=== PATIENT | male | born 1985 | race Asian ===

== ENCOUNTER 2025-07-24 11:26 | Emergency (ER) | payer SELFPAY ==
--- NOTE | 2025-07-24 12:27 | RAD REPORT ---
EXAMINATION: ULTRASOUND DUPLEX OF SCROTUM AND TESTICLES CLINICAL INDICATION: Male, 40 years, PAIN TECHNIQUE: Duplex scan of the scrotal contents was performed including real-time color and spectral D oppler ultrasonography with arterial inflow and venous outflow. COMPARISON: No prior exam. FINDINGS: RIGHT TESTICLE AND EPIDIDYMIS: The right testicle is normal in size, measuring 3.3 x 1.8 x 2.4 cm. Normal, homogeneous echotexture with no focal lesion seen. The right epididymis is normal. Color Doppler flow in the right testicle is normal. Normal arterial and venous spectral Doppler waveforms are identified. No hydrocele. No varicocele. LEFT TESTICLE AND EPIDIDYMIS: The left testicle is normal in size, measuring 3.4 x 2.1 x 2.6 cm. Normal, homogeneous echotexture with no focal lesion seen. The left epididymis is normal. Color Doppler flow in the left testicle is normal. Normal arterial and venous spectral Doppler waveforms are identified. Complex collection of fluid inferior to the left testicle, with debris, with no bowel or peristalsis present. This could represent a complicated hydrocele, or sequelae of a fluid containing hernia. This measures 2.2 x 5.1 x 2.4 cm. No varicocele. INGUINAL CANAL: No hernia. ADDITIONAL FINDINGS: None. IMPRESSION: Complex accumulation of fluid inferior to the left testicle measuring up to 5.1 x 2.2 x 2.4 cm, may r epresent a complex hydrocele or sequelae of a fluid containing hernia.
[2025-07-24] MEDS ORDERED: Levofloxacin 750mg IV 750 MG/150 ML BAG IV ONE (12:37)
[2025-07-24] MEDS ORDERED: CLINDAMYCIN 900MG/D5W 900 MG/50 ML IVPB IV ONE (12:37)
[2025-07-24] MEDS ORDERED: NA CHLORIDE 0.9% 1,000 ML ONE (12:38)
[2025-07-24 12:51] LABS: Absolute Lymphocytes (CBC) 1.5 K/uL (0.7-4.9); Hematocrit 38.5 % (39.6-49.0); Hemoglobin 12.9 g/dL (13.6-17.9); MCH 31.3 pg (27.0-35.0); MCHC 33.4 g/dL (32.0-36.0); MCV 93.6 fL (80-100); MPV 13.5 fL (7.6-11.3); Nucleated RBC Absolute Count 0.0 (0-0); Nucleated Red Blood Cells % 0.1 % (0-0); RBC Red Blood Cell Count 4.11 M/uL (4.33-5.43); White Blood Count 5.90 thou/uL (4.3-10.9)
[2025-07-24 12:55] LABS: Sqamous Epithelial <5 /HPF (None Seen); Urine Culture Reflex Order NOT NEEDED; Urine Microscopic Reflex YN ORDER UMIC; Urine WBC Clump Rare /HPF (None Seen)
[2025-07-24] MEDS ORDERED: ONDANSETRON 4 MG/2 ML VIAL ONE (12:59)
[2025-07-24] MEDS ORDERED: FENTANYL CITR 100 MCG/2 ML ONE (12:59)
[2025-07-24 13:07] LABS: ALT/SGPT 59.0 U/L (16-61); AST/SGOT 25.0 U/L (15-37); Albumin 3.4 g/dL (3.4-5.0); Albumin/Globulin Ratio 0.8 (1.1-1.8); Alkaline Phosphatase 134.0 U/L (45-117); Anion Gap 7.9 mEq/L (5.0-15.0); BUN Blood Urea Nitrogen 13.0 mg/dL (7-18); Globulin 4.4 g/dL (2.3-3.5); Glucose Level 132.0 mg/dL (74-106); Potassium 3.9 mEq/L (3.5-5.1)
--- NOTE | 2025-07-24 13:08 | EDPHYS ---
Physician Documentation [facility] Name: Alexy Pope Age: 40 yrs Sex: Male : 1985 Arrival Date: 07/24/2025 Time: 11:26 Bed 12 Private MD: Deep Lynne HPI: 07/24 13:00 This 40 yrs old Male presents to ER via Ambulatory with complaints of Penile brenda Pain, Groin Pain. 13:00 The patient presents with scrotal pain, of both sides, swelling, tenderness. Onset: The brenda symptoms/episode began/occurred 2 week(s) ago. Modifying factors: The symptoms are alleviated by remaining still, the symptoms are aggravated by movement, pressure. Associated signs and symptoms: The patient has no apparent associated signs or symptoms. Severity of symptoms: At their worst the symptoms were moderate, in the emergency department the symptoms are unchanged. The patient has not experienced similar symptoms in the past. Historical: - Allergies: 11:42 No Known Allergies; iw - Home Meds: 11:42 None [Active]; iw - PMHx: :42 None; iw - PSHx: 11:42 None; iw - Immunization history:: Adult Immunizations unknown. - Infectious Disease History:: Denies. - Social history:: Smoking status: Patient denies any tobacco usage or history of. ROS: 13:02 Constitutional: Negative for fever, chills, and weight loss, Eyes: Negative for injury, brenda pain, redness, and discharge, ENT: Negative for injury, pain, and discharge, Neck: Negative for injury, pain, and swelling, Cardiovascular: Negative for chest pain, palpitations, and edema, Respiratory: Negative for shortness of breath, cough, wheezing, and pleuritic chest pain, Abdomen/GI: Negative for abdominal pain, nausea, vomiting, diarrhea, and constipation, Back: Negative for injury and pain, MS/Extremity: Negative for injury and deformity, Skin: Negative for injury, rash, and discoloration, Neuro: Negative for headache, weakness, numbness, tingling, and seizure, Psych: Negative for depression, anxiety, suicide ideation, homicidal ideation, and hallucinations, Allergy/Immunology: Negative for hives, rash, and allergies, Endocrine: Negative for neck swelling, polydipsia, polyuria, polyphagia, and marked weight changes, Hematologic/Lymphatic: Negative for swollen nodes, abnormal bleeding, and unusual bruising, 13:02 : Positive for injury or acute deformity, of the left testicle and right testicle, Exam: 13:02 Constitutional: This is a well developed, well nourished patient who is awake, alert, brenda and in no acute distress. Head/Face: Normocephalic, atraumatic. Eyes: Pupils equal round and reactive to light, extra-ocular motions intact. Lids and lashes normal. Conjunctiva and sclera are non-icteric and not injected. Cornea within normal limits. Periorbital areas with no swelling, redness, or edema. ENT: Nares patent. No nasal discharge, no septal abnormalities noted. Tympanic membranes are normal and external auditory canals are clear. Oropharynx with no redness, swelling, or masses, exudates, or evidence of obstruction, uvula midline. Mucous membranes moist. Neck: Trachea midline, no thyromegaly or masses palpated, and no cervical lymphadenopathy. Supple, full range of motion without nuchal rigidity, or vertebral point tenderness. No Meningismus. Chest/axilla: Normal chest wall appearance and motion. Nontender with no deformity. No lesions are appreciated. Cardiovascular: Regular rate and rhythm with a normal S1 and S2. No gallops, murmurs, or rubs. Normal PMI, no JVD. No pulse deficits. Respiratory: Lungs have equal breath sounds bilaterally, clear to auscultation and percussion. No rales, rhonchi or wheezes noted. No increased work of breathing, no retractions or nasal flaring. Abdomen/GI: Soft, non-tender, with normal bowel sounds. No distension or tympany. No guarding or rebound. No evidence of tenderness throughout. Back: No spinal tenderness. No costovertebral tenderness. Full range of motion. Skin: Warm, dry with normal turgor. Normal color with no rashes, no lesions, and no evidence of cellulitis. MS/ Extremity: Pulses equal, no cyanosis. Neurovascular intact. Full, normal range of motion., bilateral aka Neuro: Awake and alert, GCS 15, oriented to person, place, time, and situation. Cranial nerves II-XII grossly intact. Motor strength 5/5 in all extremities. Sensory grossly intact. Cerebellar exam normal. Normal gait. Psych: Awake, alert, with orientation to person, place and time. Behavior, mood, and affect are within normal limits. 13:02 : CVA tenderness, is absent, Male external genitalia: erythema, swelling, tenderness, of the left testicle, right testicle and perineum is noted, Bladder: is normal, Sexual behavior: the patient is sexually active, Vital Signs: 12:43 BP 116 / 83; Pulse 81; Resp 16; Temp 97.6(TE); Pulse Ox 97% on R/A; Weight 65 kg; iw Height 5 ft. 5 in. ; 13:49 BP 119 / 95; Pulse 71; Resp 18; Pulse Ox 98% on R/A; Pain 5/10; rg5 14:15 BP 118 / 92; Pulse 73; Resp 18; Temp 98; Pulse Ox 100% ; Pain 2/10; rg5 12:43 Body Mass Index 23.85 (65.00 kg, 165.1 cm) iw 13:49 Pain Scale: Adult rg5 14:15 Pain Scale: Adult rg5 Clovis Coma Score: 13:02 Eye Response: spontaneous(4). Motor Response: obeys commands(6). Verbal Response: brenda oriented(5). Total: 15. MDM: 11:34 Medical Screening Exam initiated brenda 11:38 Medical Screening Exam initiated brenda 13:05 Differential diagnosis: nonspecific abdominal pain, UTI, Juares catheter problem, brenda prostatitis, urethritis. Data reviewed: vital signs, nurses notes, lab test result(s), EKG, radiologic studies, plain films. Consideration of Admission/Observation Escalation of care including admission/observation considered. I considered the following discharge prescriptions or medication management in the emergency department Medications were administered in the Emergency Department. See MAR. Independent interpretation of the following test(s) in the Emergency Department CT Scan: My interpretation is ct ab/pel. Test considered but Not performed: MRI: no mri/ not avalible. Historians other than the Patient: pt well informed. Care significantly affected by the following chronic conditions: no hx. 07/24 11:41 Order name: CBC with Diff; Complete Time: 12:59 [facility] 07/24 11:41 Order name: CMP [facility] 07/24 11:41 Order name: UA Rfx Peewee Cult if indicated; Complete Time: 12:59 [facility] 07/24 11:41 Order name: US Scrotum Testicles; Complete Time: 12:59 brenda 07/24 12:24 Order name: Abdomen Pelvis Scan\E\US EDMD 07/24 13:04 Order name: CT Abd/Pelvis - IV Contrast Only brenda Administered Medications: 12:51 Drug: NS 0.9% IV 1000 ml IV at 1000 ml once; to be given as a bolus over 60 minutes rg5 Route: IV; Rate: 1000 ml; Site: right antecubital; 14:20 Follow up: IV Status: Completed infusion; IV Intake: 1000ml rg5 12:57 Drug: Clindamycin IVPB 900 mg IVPB once over 30 mins; (mix in 50 mL) Route: IVPB; rg5 Infused Over: 30 mins; Site: right antecubital; 13:20 Follow up: IV Status: Completed infusion; IV Intake: 50ml rg5 13:07 Drug: levofloxacin IVPB 750 mg 150 ml IVPB once over 90 mins Volume: 150 ml; Route: rg5 IVPB; Infused Over: 90 mins; Site: right antecubital; 14:21 Follow up: IV Status: Infusion continued upon transfer; IV Intake: 75ml rg5 13:12 Drug: Ondansetron IVP 4 mg IVP once; over 2 minutes Route: IVP; Site: right antecubital;rg5 14:21 Follow up: Response: No adverse reaction rg5 13:13 Drug: fentaNYL (PF) IVP 50 mcg IVP once Route: IVP; Site: right antecubital; rg5 14:21 Follow up: Response: No adverse reaction; Pain is decreased rg5 Disposition Summary: 07/24/25 13:08 Transfer Ordered Notes: Transfer Location: [facility] Reason: Higher level of care brenda Condition: Stable brenda Problem: new brenda Symptoms: are unchanged brenda Accepting Physician: to [facility](07/24/25 14:23) rg5 Diagnosis - Cutaneous abscess of other sites - scroutum, perinumn brenda - Hydrocele, unspecified - 5x2x2 brenda Forms: - Medication Reconciliation Form brenda - SBAR form brenda Signatures: Dispatcher [employer] EDMS Deep Álvarez MD MD cha Williams, Irene, RN RN iw Thierry Medrano RN RN rg5 Corrections: (The following items were deleted from the chart) 11:41 11:41 CBC+H.LAB.BRZ ordered. EDMS EDMS 11:41 COMPREHENSIVE METABOLIC PANEL+C.LAB.BRZ ordered. EDMS EDMS 11:41 UA Rfx Peewee Cult if indicated+U.LAB.BRZ ordered. EDMS EDMS 11:41 Scrotum Testicles+US.RAD.BRZ ordered. EDMS EDMS 14:23 13:08 to [facility] rg5
--- NOTE | 2025-07-24 13:08 | ER ---
Nurse's Notes [facility] Name: Alexy Pope Age: 40 yrs Sex: Male : 1985 Arrival Date: 07/24/2025 Time: 11:26 Bed 12 Private MD: Diagnosis: Cutaneous abscess of other sites-scroutum, perinumn;Hydrocele, unspecified-5x2x2 Presentation: 07/24 11:41 Chief complaint: Patient states: right sided testicular pain and swelling X 10 days, iw had an US done and was told to come to the ER. Coronavirus screen: At this time, the client does not indicate any symptoms associated with coronavirus-19. Ebola Screen: No symptoms or risks identified at this time. Initial Sepsis Screen: Does the patient meet any 2 criteria? No. Patient's initial sepsis screen is negative. Does the patient have a suspected source of infection? No. Patient's initial sepsis screen is negative. Risk Assessment: Do you want to hurt yourself or someone else? Patient reports no desire to harm self or others. Onset of symptoms was July 14, 2025. 11:41 Method Of Arrival: Ambulatory iw 11:41 Acuity: DEVYN 3 iw Historical: - Allergies: 11:42 No Known Allergies; iw - Home Meds: 11:42 None [Active]; iw - PMHx: 11:42 None; iw - PSHx: 11:42 None; iw - Immunization history:: Adult Immunizations unknown. - Infectious Disease History:: Denies. - Social history:: Smoking status: Patient denies any tobacco usage or history of. Screenin:35 [facility] [place] ED Fall Risk Assessment (Adult) History of falling in the last 3 months, rg5 including since admission No falls in past 3 months (0 pts) Confusion or Disorientation No (0 pts) Intoxicated or Sedated No (0 pts) Impaired Gait No (0 pts) Mobility Assist Device Used No (0 pt) Altered Elimination No (0 pt) Score/Fall Risk Level 0 - 2 = Low Risk Oriented to surroundings, Maintained a safe environment. Abuse screen: Denies threats or abuse. Nutritional screening: No deficits noted. Tuberculosis screening: No symptoms or risk factors identified. Assessment: 12:35 General: Appears in no apparent distress. uncomfortable, Behavior is calm, cooperative, rg5 appropriate for age. Pain: Complains of pain in groin Quality of pain is described as aching. Neuro: Level of Consciousness is awake, alert, obeys commands, Oriented to person, place, time, situation. Cardiovascular: Patient's skin is warm and dry. Respiratory: Airway is patent Trachea midline Respiratory effort is even, unlabored, Respiratory pattern is regular, symmetrical. GI: Abdomen is flat, non-distended, Abd is soft. : No signs and/or symptoms were reported regarding the genitourinary system. EENT: No deficits noted. Derm: Skin is intact, Skin is dry, Skin is normal. Musculoskeletal: Circulation, motion, and sensation intact. Range of motion: intact in all extremities. 13:46 Reassessment: Patient and/or family updated on plan of care and expected duration. Pain rg5 level reassessed. Patient is alert, oriented x 3, equal unlabored respirations, skin warm/dry/pink. Patient states symptoms have improved. 14:45 Reassessment: pt was brought back to ER , refused transfer to [facility], discussed with pt iw the need for further intervention , explained risks involved with leaving without further treatment, including infection, loss of genitals, disfigurement and . Pt verbalized understanding , states he cannot travel to [place] today but he will make arrangements to have his brother take him tomorrow to [facility] ER , pt sent with physician/nurse's notes and reports and CT disc. Vital Signs: 12:43 BP 116 / 83; Pulse 81; Resp 16; Temp 97.6(TE); Pulse Ox 97% on R/A; Weight 65 kg; iw Height 5 ft. 5 in. ; 13:49 BP 119 / 95; Pulse 71; Resp 18; Pulse Ox 98% on R/A; Pain 5/10; rg5 14:15 BP 118 / 92; Pulse 73; Resp 18; Temp 98; Pulse Ox 100% ; Pain 2/10; rg5 12:43 Body Mass Index 23.85 (65.00 kg, 165.1 cm) iw 13:49 Pain Scale: Adult rg5 14:15 Pain Scale: Adult rg5 Clovis Coma Score: 13:02 Eye Response: spontaneous(4). Motor Response: obeys commands(6). Verbal Response: brenda oriented(5). Total: 15. ED Course: 11:30 Patient arrived in ED. im 11:34 Deep Álvarez MD is Attending Physician. brenda 11:42 Triage completed. iw 12:07 Suzanne Ward, RN is Primary Nurse. iw 12:07 Arm band placed on. iw 12:19 US Scrotum Testicles In Process Unspecified. EDMS 12:24 Abdomen Pelvis Scan\E\US In Process Unspecified. EDMS 12:32 Initial lab(s) drawn, by me, sent to lab. Inserted saline lock: 20 gauge in right iw antecubital area, using aseptic technique. Blood collected. Flushed with 10 mL NS. 12:35 Patient has correct armband on for positive identification. Bed in low position. Call rg5 light in reach. Side rails up X 1. Door closed. Noise minimized. 12:35 No provider procedures requiring assistance completed. Patient maintains SpO2 rg5 saturation greater than 95% on room air. 12:49 UA Rfx Peewee Cult if indicated Sent. iw 12:51 Thierry Medrano, MILANA is Primary Nurse. rg5 13:05 transfer in initiated with Trina Juarez from the [facility] Transfer / patient was eb auto accepted to [facility] but after accepting the patient the hospitalist wanted the patient sent to [facility]/ so patient auto accepted to [facility] bed 1635/ Dr. Filiberto Doran [facility] [employer] has accepted the patient for transfer. 13:37 CT Abd/Pelvis - IV Contrast Only In Process Unspecified. EDMS 13:37 connected the hospitalist nursing consultant for [facility] with Dr. Álvarez for patient eb transfer consultation. 14:23 Patient transferred, IV remains in place. intact, No redness/swelling at site. rg5 Administered Medications: 12:51 Drug: NS 0.9% IV 1000 ml IV at 1000 ml once; to be given as a bolus over 60 minutes rg5 Route: IV; Rate: 1000 ml; Site: right antecubital; 14:20 Follow up: IV Status: Completed infusion; IV Intake: 1000ml rg5 12:57 Drug: Clindamycin IVPB 900 mg IVPB once over 30 mins; (mix in 50 mL) Route: IVPB; rg5 Infused Over: 30 mins; Site: right antecubital; 13:20 Follow up: IV Status: Completed infusion; IV Intake: 50ml rg5 13:07 Drug: levofloxacin IVPB 750 mg 150 ml IVPB once over 90 mins Volume: 150 ml; Route: rg5 IVPB; Infused Over: 90 mins; Site: right antecubital; 14:21 Follow up: IV Status: Infusion continued upon transfer; IV Intake: 75ml rg5 13:12 Drug: Ondansetron IVP 4 mg IVP once; over 2 minutes Route: IVP; Site: right antecubital;rg5 14:21 Follow up: Response: No adverse reaction rg5 13:13 Drug: fentaNYL (PF) IVP 50 mcg IVP once Route: IVP; Site: right antecubital; rg5 14:21 Follow up: Response: No adverse reaction; Pain is decreased rg5 Medication: 12:35 VIS not applicable for this client. rg5 Intake: 13:20 IV: 50ml; Total: 50ml. rg5 14:20 IV: 1000ml; Total: 1050ml. rg5 14:21 IV: 75ml; Total: 1125ml. rg5 Outcome: 13:08 ER care complete, transfer ordered by MD. gutierrez 14:22 Transferred by ground EMS to [facility] [facility]5 14:22 Condition: stable 14:22 Instructed on the need for transfer, 14:23 Patient left the ED. rg5 Signatures: Dispatcher [employer] Deep Mcdaniel MD MD cha Williams, Irene, RN RN Trina Jamil Itzel im Gallardo, Rommel, RN RN rg5 Corrections: (The following items were deleted from the chart) 13:07 12:43 BP 116 / 83; Pulse 81bpm; Resp 16bpm; Pulse Ox 97% RA; iw dev
--- NOTE | 2025-07-24 14:41 | RAD REPORT ---
EXAMINATION: CT Abdomen Pelvis W Contrast CLINICAL INDICATION: Male, 40 years old. scrotal abscess;Abd pain TECHNIQUE: CT abdomen and pelvis was performed, after the administration of IV contrast, as per [facility] protocol. Axial, sagittal and coronal reconstructions were obtained. One or more of the following dose reduction techniques were used: Automated exposure control, adjustment of the mA and k V according to patient size, and iterative reconstruction. Unless otherwise specified, incidental findings do not require dedicated imaging follow-up. COMPARISON: No prior exam. FINDINGS: LOWER CHEST: Suboptimal inspiratory effort with bilateral dependent platelike atelectasis. LIVER: Normal in size and contour. No focal lesion. BILIARY SYSTEM: No suspicious abnormalities. SPLEEN: Normal size. No focal lesion. PANCREAS: No mass, ductal dilation, or kameron-pancreatic fluid. ADRENALS: Normal; no mass. KIDNEYS: Normal size and contour. No hydronephrosis. URINARY BLADDER: Unremarkable. GASTROINTESTINAL TRACT: No evidence of free air, significant intra-abdominal free fluid, bowel obstru ction or abscess. APPENDIX: Normal appendix. LYMPH NODES: No lymphadenopathy. MUSCULOSKELETAL: No acute or suspicious osseous abnormality. ADDITIONAL FINDINGS: Ill-defined hyperdense left scrotal collection or fluid measuring 4.3 x 3.1 cm, with component extending towards the perineum, better evaluated on ultrasound. IMPRESSION: Ill-defined hyperdense left scrotal collection as above with extension towards the perineum, this cou ld relate to an evolving hematoma or ill-defined abscess. No other acute or concerning abnormalities seen in the abdomen or pelvis.
[2025-07-24 16:33] VITALS: BP 118/92; TEMP 98; O2SAT 100
== END 2025-07-24 14:23 | disposition short-term general hospital (02) ==
LOC: ER 11:26
DX: N49.2 Inflammatory disorders of scrotum (principal); L02.215 Cutaneous abscess of perineum; N43.3 Hydrocele, unspecified
CPT/HCPCS: 36415; 74177; 76870; 80053; 81001; 85025; 93975; 96365; 96375; 99285; J2405; J3010; J7030; Q9967